=== PATIENT | female | born 1935 | race Caucasian/White ===

== ENCOUNTER 2023-09-08 08:07 | Day surgery (SDC) | payer MEDICARE ==
[~2023-09-08] VITALS: Ht 152.4 cm; Wt 44.0 kg
[~2023-09-08 08:07] MED LIST: GEMF600T90 PO; LATA2.5D14 EACHEYE; LISI1TAB49 PO
[2023-09-08 08:44] VITALS: BP 149/68; PULSE 67; RESP 16; TEMP 98.6
[2023-09-08] MEDS ORDERED: MIDAZolam 1 MG/ML 5ML VIAL ONE (10:30)
[2023-09-08] MEDS ORDERED: fentaNYL/PF 50MCG/1 ML 2ML syringe ONE (10:30)
[2023-09-08] MEDS ORDERED: LIDOcaine 2% Viscous 15ml cup ONE (10:30)
[2023-09-08] MEDS ORDERED: diphenhydrAMINE 50 mg/ml inj ONE (10:30)
[2023-09-08 10:55] VITALS: BP 121/58; PULSE 61; RESP 13; O2SAT 97
[2023-09-08 11:05] VITALS: BP 107/47; PULSE 54; RESP 12; O2SAT 97
[2023-09-08 11:15] VITALS: BP 115/39; PULSE 53; RESP 12; O2SAT 97
[2023-09-08 11:25] VITALS: BP 118/44; PULSE 69; RESP 16; O2SAT 99
== END 2023-09-08 11:40 | disposition home or self-care (01) ==
LOC: GI LAB 08:07
PROVIDERS: ATTEND Internal Medicine Gastroenterology
DX: R13.10 Dysphagia, unspecified (principal); K29.70 Gastritis, unspecified, without bleeding; K31.89 Other diseases of stomach and duodenum; I10 Essential (primary) hypertension
CPT/HCPCS: 43239; A4620; J2250; J3010; J7030; Z7512; 88305; 88342; 99152; J1200